=== PATIENT | female | born 1940 | race Caucasian/White ===

== ENCOUNTER 2016-12-08 12:10 | Observation (INO) | payer MEDICARE ==
[2016-12-08 12:23] LABS: Hematocrit 34.1 % (37.0-47.0); Mean Cell Volume 102.1 fl (78-100); Mean Corpuscular Hemoglobin 32.9 pg (27-31); Mean Corpuscular Hgb Conc 32.3 g/dl (32-36); Mean Platelet Volume 10.1 fl (6.0-9.5); Neutrophil # 10.9 K/mm3 (1.3-6.0); Neutrophil % 80.1 % (42-75.0); Platelet Count 184 K/mm3 (150-450); Red Blood Count 3.34 M/mm3 (4.2-5.4); Red Cell Distribution Width 12.3 % (11.5-14.0); White Blood Count 13.7 K/mm3 (4.0-10.5)
[2016-12-08 12:42] LABS: Albumin * 3.5 gm/dl (3.4-5.0); Bilirubin, Total 0.4 mg/dL (0.0-1.1); Ca. Corrected For Albumin 8.8 mg/dL (8.4-10.2); Calcium * 8.7 mg/dL (7.9-10.9); Carbon Dioxide 25.9 mmol/L (24-32.6); Potassium 3.9 mmol/L (3.4-4.6); Total Protein 7.3 gm/dL (6.2-8.2)
[2016-12-08 12:52] LABS: BUN/Creatinine Ratio 26.3 (9.0-21.6)
--- NOTE | 2016-12-08 13:56 | HP ---
Chief Complaint - Chief Complaint Date of Service: 12/08/16 Time of Service: 13:55 Chief Complaint: shortness of breath and difficulty in breathing for the last 1 week. History of Present Illness: Patient is a 76-year-old WF with a history of HTN, HLD, CAD, remote stroke initially came to the office in 12/05/2015 due to cough, wheezing and shortness of breath. She was started on a tapering dose of oral prednisone, nebulizer treatments with DuoNeb and azithromycin. Patient was seen on 12/08/2016 as she was no better. She states she is feeling worse. CXR shows possible infiltrate/ atelectasis in left lower lobe and mild increase in BUN/CR 36/1.37. She will be admitted into observation for IV steroids, IV fluids and nebulizer treatments as she failed to respond to outpatient therapy. 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 and atenolol 25 mg in p.m.]; HTN, HLD, hypothyroidism, LLL pneumonia 06/2008; chronic rhinitis; stress incontinence with vaginal prolapse/urge incontinence; obesity BMI 36.8. Patient History - Cancer: No Hx of Cancer Patient History - Surgical Procedures: Cataracts, Cholecystectomy, Hysterectomy , Total Hip Replacement, T & A, Other Additional Info: PAST SURGICAL HISTORY: Tonsillectomy 1959; KARISHMA/BSO [endometriosis, fibroids] 1975; cholecystectomy 1982 ; laminectomy [ L4-L5 with release of thethered spinal cord at [facility]] 08/2005; RT RONY [ femoral neck fracture] 10/2007; cystoscopy 11/2008; colpocleisis and perineoplasty -11/2008; bilateral cataract surgery 08/2015, 09/2015. LMP (females 10-50): Menopausal - Family History Mother Family History - Medical: - 71- [place], CVA, HTN. Brother Family History - Medical: - 41MI, CAD Father Family History - Medical: - 74bladder cancer with metastases - Social History Living Situations: home Smoking Status: Never smoker Have you smoked in the past 12 months: No Alcohol Use: none Drug Use: none - Immunizations Immunizations Up to Date: Yes - Zostavax 2008; DTaP refused. Hx Pneumococcal Vaccination: Yes - 2007 History of Influenza Vaccine: Yes - 09/2016 Review Of Systems (GEN) - Review of Systems Respiratory: Present: Cough, Shortness of Breath, Wheezing Cardiac: Absent: Chest Pain, Edema, Palpitations Abdominal: Absent: Nausea, Vomiting Musculoskeletal: Present: Back Pain - chronic Immunizations: IMMUNIZATION HX History of Influenza Vaccine Yes Hx Pneumococcal Vaccination Yes Allergies/Adverse Reactions: Allergies Allergy/AdvReac Type Severity Reaction Status Date / Time honey AdvReac Intermediate Other Verified 12/08/16 13:42 adhesive tape AdvReac Mild PLASTIC Verified 12/08/16 13:42 TAPE CAUSES RASH amoxicillin AdvReac Mild RASH Verified 12/08/16 13:42 cephalexin [Cephalexin] AdvReac Mild RASH Verified 12/08/16 13:42 codeine AdvReac Mild RASH Verified 12/08/16 13:42 Home Medications: HOME MEDICATIONS Simvastatin 80 mg PO HS 12/08/13 [Last Taken Unknown] Atenolol [Tenormin] 25 mg PO HS 09/14/15 [Last Taken Unknown] Docusate Sodium [Colace Clear] 50 mg PO BID PRN 09/14/15 [Last Taken Unknown] Isosorbide Mononitrate [Imdur] 15 mg PO DAILY 09/14/15 [Last Taken Unknown] Levothyroxine Sodium [Synthroid] 88 mcg PO DAILY 09/14/15 [Last Taken Unknown] Multivit-Min/FA/Lycopene/Lut [Centrum Silver Tablet] 1 each PO DAILY 09/14/15 [ Last Taken Unknown] Vera-3 Fatty Acids [Vera-3] 1,200 mg PO BID 09/14/15 [Last Taken Unknown] Albuterol Sulfate/Ipratropium [Duoneb 2.5-0.5MG/3ML Soln] 3 ml IH QID PRN [Last Taken Unknown] Aspirin 162.5 mg PO DAILY 12/08/16 [Last Taken Unknown] Cetirizine HCl [Zyrtec] 10 mg PO BID 12/08/16 [Last Taken Unknown] Cholecalciferol (Vitamin D3) [Vitamin D3] 10,000 unit PO DAILY 12/08/16 [Last Taken Unknown] Fluticasone Propionate [Allergy Relief] 1 spray NS DAILY 12/08/16 [Last Taken Unknown] Magnesium Citrate 4 - 8 tab PO DAILY 12/08/16 [Last Taken Unknown] Montelukast Sodium [Singulair] 10 mg PO 1900 12/08/16 [Last Taken Unknown] Prednisone [Deltasone] 20 mg PO DAILY 12/08/16 [Last Taken Unknown] Exam - Exam Vital Signs: Vital Signs - Last Taken Temp 36.5 C 12/08/16 13:38 Pulse 63 12/08/16 13:38 Resp 20 12/08/16 13:38 BP 121/55 12/08/16 13:38 Pulse Ox 94 12/08/16 13:38 Constitutional: Present: Elderly, Obese - looks uncomfortable, constantly coughing. ENT Exam: Present: normal ENT inspection, hearing grossly normal, moist mucous membranes Eye Exam: bilateral eye: PERRL, EOMI Neck: Present: normal inspection, trachea midline Breasts: Present: Exam deferred Respiratory: Present: no respiratory distress, rhonchi, wheezing. Absent: no accessory muscle use Cardiovascular/Chest: Present: regular rate, rhythm. Absent: tachycardia Peripheral Pulses: carotid (R): 2+, carotid (L): 2+ Abdomen: Present: Normal bowel sounds, soft, nontender, nondistended, obese /Rectal: Present: Exam deferred Extremity: Present: non-tender, normal inspection Skin Exam: Present: normal color, warm/dry Eye contact: Present: cooperative, good eye contact, normal speech Diagnostic Studies: Laboratory Tests 12/08/16 12:13 WBC 13.7 H Hct 34.1 L MCV 102.1 H Plt Count 184 12/08/16 12:13 Plasma Sodium 141 Potassium 3.9 Chloride 104 Carbon Dioxide 25.9 BUN 36 H Creatinine 1.37 Est GFR (Non-Af Amer) 40 L D Random Glucose 91 Calcium Adj for Albumin 8.8 Total Bilirubin 0.4 AST 16 ALT 21 Alkaline Phosphatase 62 Total Protein 7.3 Albumin 3.5 CXR PA and lateral: 12/08/2016: Possible left lower infiltrate versus atelectasis. Consider follow-up to document resolution. Stable mild cardiomegaly. DJD of spine. Assessment/Plan - Narrative Narrative: 1. Bronchitis: Solu-Medrol 80 mg IV 1 followed by 60 mg IV every 6 hours. GI prophylaxis with PPI [Protonix 40 mg IV daily]. Start DuoNeb IH 4 times a day[can substitute with Xopenex if patient becomes tachycardic]. Add Pulmicort 0.5 mg IH every 8 hours. No DVT prophylaxis as anticipated stay is one day. 2. Possible left lower lobe infiltrate/atelectasis: Azithromycin 500 mg IV daily and Cornet every 2 hours while awake. 3. Mild dehydration: BUN/CR elevated at 36/1.37. Start IV fluids 0.5 normal saline at 100 mL per hour. 4. Multiple medical problems: Other multiple medical problems including TIA/basal ganglia infarct, HLD, hypothyroidism, CAD, currently stable and will continue medications.
[2016-12-08] MEDS ORDERED: METHYLPREDNISOLONE SOD SUCC 80 MG in WATER FOR INJ.,BACTERIOSTATIC 0 ML IV STA (13:58)
[2016-12-08] MEDS ORDERED: AZITHROMYCIN 500 MG in DEXTROSE 5 % IN WATER 250 ML IV STA ×2 (14:00)
[2016-12-08] MEDS ORDERED: ALBUTEROL SULFATE/IPRATROPIUM 3 ML NEBU IH STA (14:01)
[2016-12-08] MEDS ORDERED: DOCUSATE SODIUM 100 MG CAPSULE PO PRN (14:03)
[2016-12-08] MEDS: PANTOPRAZOLE SODIUM 40 MG in NORMAL SALINE 100 ML IV SCH (14:47)
[2016-12-08] MEDS ORDERED: 0.5 NORMAL SALINE 1,000 ML IV STA (16:21)
[2016-12-08] MEDS: ALBUTEROL SULFATE/IPRATROPIUM 3 ML NEBU IH SCH (18:53)
[2016-12-08] MEDS: BUDESONIDE 0.5 MG/2 ML VIAL.NEB IH SCH (18:55)
[2016-12-08] MEDS: METHYLPREDNISOLONE SOD SUCC 60 MG in WATER FOR INJ.,BACTERIOSTATIC 0 ML IV SCH (18:56)
[2016-12-08] MEDS ORDERED: MONTELUKAST SODIUM 10 MG TABLET PO SCH (19:00)
[2016-12-08] MEDS ORDERED: guaiFENesin/DEXTROMETHORPHAN 118 ML BTL PO PRN (19:32)
[2016-12-08] MEDS: LORATADINE 10 MG TABLET PO SCH (20:09)
[2016-12-08] MEDS ORDERED: ATENOLOL 25 MG TABLET PO SCH (21:00)
[2016-12-08] MEDS ORDERED: SIMVASTATIN 40 MG TABLET PO SCH (21:00)
[2016-12-08] MEDS ORDERED: guaiFENesin/DEXTROMETHORPHAN 118 ML BTL PO SCH (21:00)
[2016-12-09] MEDS: ALBUTEROL SULFATE/IPRATROPIUM 3 ML NEBU IH SCH ×3 (00:27→13:26)
[2016-12-09] MEDS: METHYLPREDNISOLONE SOD SUCC 60 MG in WATER FOR INJ.,BACTERIOSTATIC 0 ML IV SCH ×2 (01:11→07:14)
[2016-12-09] MEDS: BUDESONIDE 0.5 MG/2 ML VIAL.NEB IH SCH (06:06)
[2016-12-09] MEDS ORDERED: LEVOTHYROXINE SODIUM 88 MCG TABLET PO SCH (07:00)
[2016-12-09 07:07] VITALS: BP 145/59
[2016-12-09] MEDS: LORATADINE 10 MG TABLET PO SCH (08:34)
[2016-12-09] MEDS ORDERED: FLUTICASONE PROPIONATE 120 SPRAY INHALER NS SCH (09:00)
[2016-12-09] MEDS ORDERED: ISOSORBIDE MONONITRATE 30 MG TAB.SR.24H PO SCH (09:00)
[2016-12-09 09:08] LABS: Anion Gap 17.5 mmol/L (6.8-13.8); Calcium * 8.8 mg/dL (7.9-10.9); Carbon Dioxide 23.5 mmol/L (24-32.6); Estimated Creat Clear 28.7
[2016-12-09] MEDS ORDERED: AZITHROMYCIN 500 MG in DEXTROSE 5 % IN WATER 250 ML IV ONE ×2 (12:24)
[2016-12-09] MEDS ORDERED: predniSONE 20 MG TABLET PO STA (12:25)
--- NOTE | 2016-12-09 12:26 | DS ---
(1) Bronchitis Diagnosis(s): Patient was treated with steroids IV, azithromycin IV, DuoNeb IH and Pulmicort IH with improvement in symptoms. Problem: Acute (2) atelectasis/ Left lower lung infitrate Diagnosis(s): Use Dominga every 2 hours while awake Problem: Acute (3) Dehydration, mild Diagnosis(s): BUN/CR improved from 36/1.37[12/08/2016] to 28/1.27[12/09/2016 Problem: Acute (4) Chronic medical problems Diagnosis(s): Other medical problems including TIA/basal ganglia infarct, HLD, hypothyroidism , CAD, CKD stage III , anemia of chronic disease, currently stable and will continue medications. Problem: Chronic Description of Stay: DATE OF ADMISSION: 12/08/2016. DATE OF DISCHARGE: 12/09/2016. HOSPITAL COURSE: Patient is a 76-year-old WF with a history of HTN, HLD, CAD treated medically, and a remote history of a lacunar infarct who was treated for bronchitis on with tapering dose of oral prednisone, nebulizer treatments with DuoNeb and azithromycin 500 mg x 3 days. Patient was admitted on 12/08/2016 as she was significantly worse and she failed outpatient therapy. CXR shows possible infiltrate/atelectasis in left lower lobe and mild increase in BUN/CR 36/1.37. She was admitted into observation for IV steroids, IV fluids and nebulizer treatments. She was given Solu-Medrol 80 mg IV followed by 60 mg IV every 6 hours, pantoprazole 40 mg IV for GI prophylaxis, DuoNeb 0.5 mg in 3 mL NS IH every 6 hours and Pulmicort 0.5 mg IH TID. She was advised to use Coronet every 2 hours while awake. She was given azithromycin 500 mg IV 2 days. Mild dehydration was treated with 0.5% normal saline at 100 mL an hour with overall improvement in her condition. B UN/CR improved to 28/1.22. Patient was switched to oral prednisone and is being discharged in a stable condition. More than 30 minutes was spent in examination of the patient, preparation and dictation of the discharge summary. Procedures Performed: none Results and Findings: Laboratory Tests 12/08/16 12:13 WBC 13.7 H Hgb 11.0 L Hct 34.1 L MCV 102.1 H Plt Count 184 12/08/16 12/09/16 12:13 08:40 Plasma Sodium 141 142 Potassium 3.9 4.0 Chloride 104 103 Carbon Dioxide 25.9 23.5 L BUN 36 H 28 H Creatinine 1.37 1.22 Est GFR (Non-Af Amer) 40 L D 45 L Random Glucose 91 200 H D Calcium Adj for Albumin 8.8 Total Bilirubin 0.4 AST 16 ALT 21 Alkaline Phosphatase 62 Total Protein 7.3 Albumin 3.5 CXR PA and lateral: 12/08/2016: Possible left lower infiltrate versus atelectasis. Consider follow-up to document resolution. Stable mild cardiomegaly. DJD of spine. 12/08/16 13:38 Weight 88.3 kg Discharge Disposition: Home self care Disposition: Home self-care Condition: Fair Discharge Diet: Low fat/chol, High Fiber Referrals: Amaris Royal MD [Primary Care Provider] - Problem Oriented Discharge Instructions to Patient/Family: Acute Bronchitis Additional Patient Instructions (free text): Start prednisone 60 mg from 12/10/2016. Use cornet every 2 hours while awake. Continue neb treatments 3 times a day for the next 5 days. Only new medication is prednisone. Decrease cetirizine to 10 mg at bedtime[currently taking cetirizine 10 mg twice a day]. Please give patient information on bronchitis. Appointment with Dr. Aranda in 7-10 days. Prescriptions (Any new or edited meds): predniSONE [Prednisone] 20 mg PO DAILY #9 tablet Complete Home Medications List: Complete Home Medication List: Simvastatin 80 mg PO HS 12/08/13 Atenolol [Tenormin] 25 mg PO HS 09/14/15 Docusate Sodium [Colace Clear] 50 mg PO BID PRN 09/14/15 Isosorbide Mononitrate [Imdur] 15 mg PO DAILY 09/14/15 Levothyroxine Sodium [Synthroid] 88 mcg PO DAILY 09/14/15 Multivit-Min/FA/Lycopene/Lut [Centrum Silver Tablet] 1 each PO DAILY 09/14/15 Albany-3 Fatty Acids [Albany-3] 1,200 mg PO BID 09/14/15 Albuterol Sulfate/Ipratropium [Duoneb 2.5-0.5MG/3ML Soln] 3 ml IH QID PRN Aspirin 162.5 mg PO DAILY 12/08/16 Cetirizine HCl [Zyrtec] 10 mg PO BID 12/08/16 Cholecalciferol (Vitamin D3) [Vitamin D3] 10,000 unit PO DAILY 12/08/16 Fluticasone Propionate [Allergy Relief] 1 spray NS DAILY 12/08/16 Magnesium Citrate 4 - 8 tab PO DAILY 12/08/16 Montelukast Sodium [Singulair] 10 mg PO 1900 12/08/16 predniSONE [Prednisone] 20 mg PO DAILY #9 tablet 12/09/16
[2016-12-09] MEDS: PANTOPRAZOLE SODIUM 40 MG in NORMAL SALINE 100 ML IV SCH (14:22)
== END 2016-12-09 15:30 | disposition home or self-care (01) ==
LOC: LAB 12:10 → MS 13:29
PROVIDERS: ADMIT Internal Medicine; ATTEND Internal Medicine
DX: J20.9 Acute bronchitis, unspecified (principal); J98.11 Atelectasis; E86.0 Dehydration; Z90.49 Acquired absence of other specified parts of digestive tract; Z90.710 Acquired absence of both cervix and uterus; Z96.649 Presence of unspecified artificial hip joint; Z86.73 Personal history of transient ischemic attack (TIA), and cerebral infarction without residual deficits; I25.119 Atherosclerotic heart disease of native coronary artery with unspecified angina pectoris; I10 Essential (primary) hypertension; E78.5 Hyperlipidemia, unspecified; E03.9 Hypothyroidism, unspecified; E66.9 Obesity, unspecified; Z68.36 Body mass index [BMI] 36.0-36.9, adult; Z82.3 Family history of stroke; Z82.49 Family history of ischemic heart disease and other diseases of the circulatory system; Z80.52 Family history of malignant neoplasm of bladder; Z79.82 Long term (current) use of aspirin; Z79.899 Other long term (current) drug therapy
CPT/HCPCS: 36415; 71020; 80048; 80053; 85025; 94640; 96361; 96365; G0378; G0379

== ENCOUNTER 2017-02-28 14:34 | Emergency (ER) | payer MEDICARE ==
[2017-02-28] MEDS ORDERED: MECLIZINE HCL 25 MG TABLET PO ONE (14:54)
--- OUTSIDE RECORDS SUMMARY | 2017-02-28 15:02 | XMS REPORT | Summary of Care ---
:1940 Author Organization [facility] Address [address] [place] [address] [address] [place] [address] Care Team Providers Name Role Phone Amaris Royal Primary Care Physician Encounter Date(s): 12/17/16 - 12/17/16 [facility] [address] [id number] Discharge Disposition: 01 Discharged to Home or Self Care Attending Physician: Ludmila Moise MD Referring Physician: Ludmila Moise MD Vital Signs Most recent to oldest [Reference Range]: 1 Peripheral Pulse Rate [60-100 bpm] 48 bpm *LOW* (12/17/16 1:05 PM) SpO2 97 % (12/17/16 1:05 PM) Blood Pressure [90-130/60-90 mmHg] 117/62mmHg (12/17/16 1:05 PM) Mean Arterial Pressure, Cuff 80 mmHg (12/17/16 1:05 PM) Height/Length Measured 154 cm (12/17/16 1:05 PM) Weight Dosing 88.50 kg1 (12/17/16 1:19 PM) Weight Measured 88.5 kg (12/17/16 1:05 PM) BSA Measured 1.86 m2 (12/17/16 1:05 PM) Body Mass Index Measured 37.32 kg/m2 (12/17/16 1:05 PM) 1Result Comment: This result was because the dosing weight was either not entered or it is>30 days old. This result is based off: Weight Measured December 17, 2016 13:05:00 HVAC INSTRUCTOR by Micaela Bolaños RN Problem List Condition Effective Dates Status Health Status Informant Coronary artery disease(Confirmed) Active CVA (cerebral vascular 06/2000 Active accident)(Confirmed) Diastolic dysfunction(Confirmed) Active Hyperlipidemia(Confirmed) Active Hypertension(Confirmed) 1999 Active Hypothyroidism(Confirmed) 1992 Active Pneumonia(Confirmed) 06/2008 Active Rhinitis, chronic(Confirmed) 01/27/14 Active Stress incontinence in Active female(Confirmed) Allergies, Adverse Reactions, Alerts Substance Reaction Severity Status amoxicillin Rash Active cephalexin Rash Active Codeine Phosphate Rash Active Codeine Sulfate Rash Active Tape Rash Active Medications aspirin 325 mg oral tablet 0.5 tab, Oral, Daily, # 30 tab(s), 0 Refill(s), Start Date: 09/24/16 11:09:00 CDT Start Date: 09/24/16 Status: Orderedatenolol 25 mg oral tablet 1 tab(s), Oral, Daily, # 30 tab(s), 0 Refill(s), Start Date: 09/24/16 11:09:00 CDT Start Date: 09/24/16 Status: OrderedCardizem CD 180 mg/24 hours oral capsule, extended release 1 cap(s), Oral, Daily, # 30 cap(s), 0 Refill(s), Start Date: 10/13/16 15:30:00 HVAC INSTRUCTOR Start Date: 10/13/16 Stop Date: 10/13/16 Status: CompletedCardizem CD 180 mg/24 hours oral capsule, extended release 1 cap(s), Oral, Daily, # 30 cap(s), 3 Refill(s), Start Date: 10/13/16 15:51:03 HVAC INSTRUCTOR, Pharmacy: [place], [place] Start Date: 10/13/16 Status: OrderedCentrum Silver Ultra Women's oral tablet 1 tab(s), Oral, Daily, 0 Refill(s), Start Date: 09/24/16 11:10:00 CDT Start Date: 09/24/16 Status: Orderedcetirizine 10 mg oral tablet tab(s), Oral, BID, 0 Refill(s), Start Date: 09/24/16 11:10:00 CDT Start Date: 09/24/16 Status: OrderedColace 50 mg oral capsule 1 cap(s), Oral, BID, PRN for constipation, # 180 cap(s), 0 Refill(s), Start Date : 09/24/16 11:10:00 CDT Start Date: 09/24/16 Status: Orderedfluticasone 50 mcg/inh nasal spray 1 spray(s), Nasal, Daily, # 16 gm, 0 Refill(s), Start Date: 09/24/16 11:10:00 CDT Start Date: 09/24/16 Status: OrderedImdur 30 mg oral tablet, extended release 0.5 tab(s), Oral, qAM, 0 Refill(s), Start Date: 09/24/16 11:11:00 CDT Start Date: 09/24/16 Status: Orderedlevothyroxine 88 mcg (0.088 mg) oral tablet 1 tab(s), Oral, Daily, # 30 tab(s), 0 Refill(s), Start Date: 09/24/16 11:11:00 CDT Start Date: 09/24/16 Status: Orderedlisinopril 20 mg oral tablet 1 tab(s), Oral, Daily, # 30 tab(s), 3 Refill(s), Start Date: 11/17/16 15:05:00 HVAC INSTRUCTOR, Pharmacy: [place], [place] Start Date: 11/17/16 Status: Orderedmagnesium oxide Oral, 0 Refill(s), Start Date: 10/27/16 10:57:00 HVAC INSTRUCTOR Start Date: 10/27/16 Status: Orderedmontelukast 10 mg oral tablet 1 tab(s), Oral, qPM, # 30 tab(s), 0 Refill(s), Start Date: 09/24/16 11:11:00 CDT Start Date: 09/24/16 Status: OrderedOmega-3 oral capsule 1 tab, Oral, BID, 0 Refill(s), Start Date: 09/24/16 11:12:00 CDT Start Date: 09/24/16 Status: Orderedsimvastatin 80 mg oral tablet 1 tab(s), Oral, HS, # 30 tab(s), 0 Refill(s), Start Date: 09/24/16 11:13:00 CDT Start Date: 09/24/16 Status: OrderedVitamin D3 10,000 intl units oral capsule 1 cap(s), Oral, qWeek, 0 Refill(s), Start Date: 10/27/16 10:56:00 HVAC INSTRUCTOR Start Date: 10/27/16 Status: OrderedVitamin D3 2000 intl units oral capsule 1 cap(s), Oral, Daily, 0 Refill(s), Start Date: 09/24/16 11:13:00 CDT Start Date: 09/24/16 Stop Date: 10/27/16 Status: DiscontinuedVitamin K1 100 mcg oral tablet 1 tab(s), Oral, Daily, 0 Refill(s), Start Date: 10/27/16 10:57:00 HVAC INSTRUCTOR Start Date: 10/27/16 Status: Ordered Results No data available for this section Immunizations No data available for this section Procedures Procedure Date Related Diagnosis Body Site Echocardiogram-severe MR, normal EF 10/2016 Cardiac catheterization, left heart1 10/13/16 Cataract surgery2 08/2015 Colpocleisis 12/22/08 Perineoplasty 12/22/08 Cystoscopy 11/2008 Arthroplasty3 10/2007 Laminectomy4 08/2005 Cardiac catheterization, left heart5 2000 Cardiac catheterization, left heart6 1992 Cholecystectomy 1982 Vaginal hysterectomy 1976 KARISHMA BSO - Total abdominal hysterectomy and 1975 bilateral salpingo-oophorectomy7 Tonsillectomy 1960 1No [id number] - Left har4Gxwfz, Femoral neck [id number] with release of thethered spinal vpxe5Napntr Diagonal Branch to the LAD - 85-90% stensosis - medically [id number] to endometriosis, fibroids and bleeding Social History No data available for this section Assessment and Plan No data available for this section
--- OUTSIDE RECORDS SUMMARY | 2017-02-28 15:02 | XMS REPORT | Continuity of Care Document ---
:1940 Author Organization [facility] ([facility]) Address [address] [place] [address] Phone [phone] Care Team Providers Name Role Phone Ashwini Austin-Comm Primary Care Provider [phone] Source Comments This disclosure is being made pursuant to the Care Everywhere program, applicable federal and state laws, and may not contain all informaitonavailable regarding this patient.[facility] ([facility]) Active Allergies and Adverse Reactions Allergen Noted Date Severity Reactions Comments Cephalexin Urticaria (Hives) Codeine Urticaria (Hives) Honey Blisters,Urticaria (Hives) Mouth sores Non-Med Plastic Tape Urticaria (Hives) Current Medications Prescription Sig. Disp. Refills Start Date End Date Status levothyroxine (LEVOTHROID) take 1 Tab by Active 88 mcg tablet mouth daily. isosorbide mononitrate take 0.5 Tabs by Active (IMDUR) 30 mg CR tablet mouth Every morning. clopidogrel (PLAVIX) 75 mg take 1 Tab by Active tablet mouth daily. Aitapkukdywie-Hehostwv-Txup take 1 Tab by Active in (CENTRUM SILVER) Tab mouth daily. Ascorbate take 1 Tab by Active Calcium-Bioflavonoid mouth daily. (SHERI-C) 1,000-200 mg TbSR Calcium Carbonate-Vit take 1 Tab by Active D3-Min (CALTRATE 600+D PLUS mouth 2 times MINERALS) 600 mg (1,500 daily. mg)-400 unit Chew furosemide (LASIX) 40 mg take 1 Tab by Active tablet mouth daily. cholecalciferol (VITAMIN D) take 1 Tab by Active 1,000 unit Tab tablet mouth daily. Docusate Sodium (STOOL take 2 Tabs by Active SOFTENER) 100 mg Tab mouth every evening. atenolol (TENORMIN) 25 mg take 1 Tab by Active tablet mouth daily. simvastatin (ZOCOR) 80 mg take 1 Tab by Active tablet mouth every evening. 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/2007 Incomplete bladder emptying 04/16/2007 Social History Tobacco Use Types Packs/Day Years Used Date Never Assessed Last Filed Vital Signs Vital Sign Reading Time Taken Blood Pressure 148/74 08/09/2009 11:15 AM CDT Pulse 67 08/09/2009 11:15 AM CDT Temperature 36.8 C (98.24 F) 12/23/2008 4:00 AM INSPECTOR STRUCTURAL BONDING Respiratory Rate 16 12/23/2008 4:00 AM INSPECTOR STRUCTURAL BONDING Height 1.55 m (5' 1.02") 12/22/2008 12:40 PM INSPECTOR STRUCTURAL BONDING Weight 88.597 kg (195 lb 5.1 oz) 12/22/2008 12:40 PM INSPECTOR STRU[employer] BONDING Body Mass Index 36.88 12/22/2008 12:40 PM INSPECTOR STRUCTURAL BONDING Oxygen Saturation 97% 12/22/2008 5:35 AM INSPECTOR STRUCTURAL BONDING Plan of Care Health Maintenance Due Date Last Done Comments Hepatitis B Vaccine (1 of 3 - Primary Series) 1940 Tdap Vaccine 1949 Lipid Disorder Screening 1956 Td Vaccine 1956 Mammogram 1978 Colonoscopy 11/20/1988 Zoster Vaccine 1998 Osteoporosis Screening (DXA Bone Density) 2003 Pneumococcal Vaccine (1 of 2 - PCV13) 2003 Influenza Vaccine: Seasonal (#1) 06/30/2016 Results from Last 3 Months Not on file
--- OUTSIDE RECORDS SUMMARY | 2017-02-28 15:02 | XMS REPORT | Summary of Care ---
:1940 Author Organization [facility] Address [address] [place] [address] Care Team Providers Name Role Phone CatiastefaniaAmaris Primary Care Physician Encounter Date(s): 01/12/17 - 01/12/17 [facility] Julisa Barnard, [address] [place], [place] [address] Discharge Diagnosis: Thoracic spine pain Discharge Diagnosis: Thoracic kyphosis Discharge Disposition: 01 Discharged to Home or Self Care Attending Physician: Jose Tapia NP Referring Physician: Jose Tapia NP Vital Signs Most recent to oldest [Reference Range]: 1 Peripheral Pulse Rate [60-100 bpm] 48 bpm *LOW* (01/12/17 9:51 AM) Blood Pressure [90-130/60-90 mmHg] 143/70mmHg *HI* (01/12/17 9:51 AM) Mean Arterial Pressure, Cuff 94 mmHg (01/12/17 9:51 AM) Most recent to oldest [Reference Range]: 1 Height/Length Measured 154 cm (01/12/17 9:51 AM) Weight Dosing 88.50 kg1 (01/12/17 9:59 AM) Weight Measured 88.5 kg (01/12/17 9:51 AM) BSA Measured 1.86 m2 (01/12/17 9:51 AM) Body Mass Index Measured 37.32 kg/m2 (01/12/17 9:51 AM) 1Result Comment: This result was because the dosing weight was either not entered or it is>30 days old. This result is based off: Weight Measured January 12, 2017 09:51:00 ART DISPLAY MAKER by Rafiq Gomez Pulp Refiner Operator Problem List Condition Effective Dates Status Health Status Informant Coronary artery disease(Confirmed) Active CVA (cerebral vascular 06/2000 Active accident)(Confirmed) Diastolic dysfunction(Confirmed) Active Hyperlipidemia(Confirmed) Active Hypertension(Confirmed) 1999 Active Hypothyroidism(Confirmed) 1992 Active Thoracic kyphosis(Confirmed) Active Thoracic spine pain(Confirmed) Active Pneumonia(Confirmed) 06/2008 Active Rhinitis, chronic(Confirmed) 01/27/14 [...] cap(s), 0 Refill(s), Start Date: 10/13/16 15:30:00 ART DISPLAY MAKER Start Date: 10/13/16 Stop Date: 10/13/16 Status: CompletedCardizem CD 180 mg/24 hours oral capsule, extended release 1 cap(s), Oral, Daily, # 30 cap(s), 3 Refill(s), Start Date: 10/13/16 15:51:03 ART DISPLAY MAKER, Pharmacy: [place], [place] Start Date: 10/13/16 Status: OrderedCentrum Silver [...] tab(s), 3 Refill(s), Start Date: 11/17/16 15:05:00 ART DISPLAY MAKER, Pharmacy: [place], [place] Start Date: 11/17/16 Status: Orderedmagnesium oxide Oral, 0 Refill(s), Start Date: 10/27/16 10:57:00 ART DISPLAY MAKER Start Date: 10/27/16 Status: Orderedmontelukast 10 mg [...] qWeek, 0 Refill(s), Start Date: 10/27/16 10:56:00 ART DISPLAY MAKER Start Date: 10/27/16 Status: OrderedVitamin D3 2000 intl units oral capsule 1 cap(s), Oral, Daily, 0 Refill(s), Start Date: 09/24/16 11:13:00 CDT Start Date: 09/24/16 Stop Date: 10/27/16 Status: DiscontinuedVitamin K1 100 mcg oral tablet 1 tab(s), Oral, Daily, 0 Refill(s), Start Date: 10/27/16 10:57:00 ART DISPLAY MAKER Start Date: 10/27/16 Status: Ordered Results No [...] and 1975 bilateral salpingo-oophorectomy7 Tonsillectomy 1960 1No [id number] - Left hok4Tutji, Femoral neck [id number] with release of thethered spinal htjb5Mmjwqi Diagonal Branch to the LAD - 85-90% stensosis - medically [id number] to endometriosis, fibroids and bleeding Social History No data available for this section Assessment and Plan No data available for this section
--- NOTE | 2017-02-28 15:05 | ERNOTE ---
Dizziness ER Record Date of Service: 02/28/17 Presenting Symptoms: dizziness Time Seen by Provider: 02/28/17 14:39 Source: patient, family Exam Limitations: no limitations Immunizations: IMMUNIZATION HX Immunizations Up to Date Yes History of Influenza Vaccine Yes Hx Pneumococcal Vaccination Yes Allergies/Adverse Reactions: Allergies Allergy/AdvReac Type Severity Reaction Status Date / Time honey AdvReac Intermediate Other Verified 12/08/16 13:42 adhesive tape AdvReac Mild PLASTIC Verified 12/08/16 13:42 TAPE CAUSES RASH amoxicillin AdvReac Mild RASH Verified 12/08/16 13:42 cephalexin [Cephalexin] AdvReac Mild RASH Verified 12/08/16 13:42 codeine AdvReac Mild RASH Verified 12/08/16 13:42 Home Medications: HOME MEDICATIONS Simvastatin 80 mg PO HS 12/08/13 [Last Taken Unknown] Atenolol [Tenormin] 25 mg PO HS 09/14/15 [Last Taken Unknown] Docusate Sodium [Colace Clear] 50 mg PO BID PRN 09/14/15 [Last Taken Unknown] Isosorbide Mononitrate [Imdur] 15 mg PO DAILY 09/14/15 [Last Taken Unknown] Levothyroxine Sodium [Synthroid] 88 mcg PO DAILY 09/14/15 [Last Taken Unknown] Multivit-Min/FA/Lycopen/Lutein [Centrum Silver Tablet] 1 each PO DAILY 09/14/15 [Last Taken Unknown] Four States-3 Fatty Acids [Four States-3] 1,200 mg PO BID 09/14/15 [Last Taken Unknown] Albuterol Sulfate/Ipratropium [Duoneb 2.5-0.5MG/3ML Soln] 3 ml IH QID PRN [Last Taken Unknown] Aspirin 162.5 mg PO DAILY 12/08/16 [Last Taken Unknown] Cetirizine HCl [Zyrtec] 10 mg PO BID 12/08/16 [Last Taken Unknown] Cholecalciferol (Vitamin D3) [Vitamin D3] 10,000 unit PO DAILY 12/08/16 [Last Taken Unknown] Fluticasone Propionate [Allergy Relief] 1 spray NS DAILY 12/08/16 [Last Taken Unknown] Magnesium Citrate 4 - 8 tab PO DAILY 12/08/16 [Last Taken Unknown] Montelukast Sodium [Singulair] 10 mg PO 1900 12/08/16 [Last Taken Unknown] predniSONE [Prednisone] 20 mg PO DAILY #9 tablet 12/09/16 [Last Taken Unknown] Meclizine HCl [Antivert] 25 mg PO Q4H #100 tablet 02/28/17 [Last Taken Unknown] - History of Present Illness Narrative: This morning developed spinning vertigo, associated with nausea and blurred vision. She also has chronic tinnitus, that sounds like small engines in her ears. She has had vertigo in the past, more severe than this, but came to the [facility] ER by private vehicle today because she didn't want to have a heart attack or stroke. Timing and Duration: sudden onset, intermittent Noted on awakening:: No Severity: max: mild Severity: currently: mild Associated Symptoms: Present: ringing/roaring in ear, nausea, sweating Sense of movement: Present: spinning Fainted/near fainted while:: Absent: standing, sitting, supine Decreased ability to stand/walk:: Present: off balance Usually:: Present: walks w/o assistance Modifying Factors - (Improves): Reports: nothing - rest Modifying Factors - (Worsens): Reports: changing position Prior Treament: Reports: similar symptoms before. Denies: currently on antibiotics Review of Systems - Review of Systems Constitutional: Present: no symptoms reported EYE: Present: no symptoms reported ENT: Present: See HPI Respiratory: Present: no symptoms reported Cardiology: Present: no symptoms reported Gastrointestinal/Abdominal: Present: nausea Genitourinary: Present: no symptoms reported Musculoskeletal: Present: no symptoms reported Skin: Present: no symptoms reported Neurological: Present: no symptoms reported Endocrine: Present: no symptoms reported Hematologic/Lymphatic: Present: no symptoms reported Psych: Present: no symptoms reported All Other Systems: All systems neg except as marked - Patient's Past Medical History Patient History - Medical: No pertinent hx Patient History - Cardiac/Respiratory: No pertinent hx Patient History - Cancer: No Hx of Cancer Patient History - Surgical Procedures: Appendectomy, Cholecystectomy, Hysterectomy, Total Hip Replacement Patient History - Other: None LMP (females 10-50): Menopausal - Family History Mother Family History - Medical: Family History - Cardiac/Respiratory: CVA/Stroke, Hypertension, Myocardial Infarction Father Family History - Medical: Brother Family History - Medical: Family History - Cardiac/Respiratory: Myocardial Infarction - Social History Living Situations: home Abuse History: No History of abuse Psych History: No pertinent hx Smoking Status: Never smoker Have you smoked in the past 12 months: No Alcohol Use: none Drug Use: none - Immunizations Immunizations Up to Date: Yes Hx Pneumococcal Vaccination: Yes History of Influenza Vaccine: Yes Physical Exam - Physical Exam General Appearance: Present: wd/wn, alert, no apparent distress Eye Exam: Normal inspection: bilateral, PERRL: bilateral, EOMI: bilateral Ears, Nose, Throat: Present: normal ENT inspection, normal pharynx Neck: Present: normal inspection, nontender. Absent: carotid bruit Respiratory: Present: no respiratory distress, normal breath sounds Cardiovascular/Chest: Present: regular rate, rhythm, no murmur Gastrointestinal/Abdominal: Present: normal bowel sounds, nontender, nondistended, soft, no organomegaly Back Exam: Present: normal inspection Extremity Exam: Present: pedal edema - 2+ bilaterally, chronic, worse by the end of the day. Neurological Exam: Present: alert, oriented, normal mood/affect, no motor/ sensory deficits Skin Exam: Present: normal color, warm/dry ED Progress - Results and Orders Patient's Lab Results:: I have reviewed the patient's lab results. - Vital Signs Patient's Vital Signs:: I have reviewed the patient's vital signs. Vital Signs: Vital Signs 02/28/17 14:40 Temperature 36.6 C Pulse Rate 40 L Respiratory 13 Rate Blood Pressure 108/40 O2 Sat by Pulse 96 Oximetry - EKG EKG read: Interp. by me - sinus bradycardai, poor r waves in anterior leads, non acute. - X-Ray X-Ray #1 X-Ray: chest Interpretation: Interp. by me - large heart, non acute. - Progress/Reassessment Chief Complaint: Dizziness Progress:: Improved Departure Clinical Impression: Vertigo Tinnitus Qualifiers: Laterality: bilateral Qualified Code(s): H93.13 - Tinnitus, bilateral - Departure Disposition: Home self-care Condition: Good Instructions: Tinnitus, Vertigo, [id number] Additional Instructions: Followup with your doctor next week. Referrals: Amaris Royal MD [Primary Care Provider] - Prescriptions: Meclizine HCl [Antivert] 25 mg PO Q4H #100 tablet
[2017-02-28] MEDS ORDERED: MECLIZINE HCL 25 MG TABLET ONE (15:09)
[2017-02-28 15:22] LABS: Hematocrit 31.5 % (37.0-47.0); Hemoglobin 10.5 gm/dL (12.5-16.0); Mean Cell Volume 99.7 fl (78-100); Mean Corpuscular Hemoglobin 33.2 pg (27-31); Mean Corpuscular Hgb Conc 33.3 g/dl (32-36); Mean Platelet Volume 10.7 fl (6.0-9.5); Neutrophil # 2.8 K/mm3 (1.3-6.0); Neutrophil % 58.7 % (42-75.0); Platelet Count 139 K/mm3 (150-450); Red Blood Count 3.16 M/mm3 (4.2-5.4); Red Cell Distribution Width 12.3 % (11.5-14.0); White Blood Count 4.8 K/mm3 (4.0-10.5)
[2017-02-28 15:38] LABS: Troponin I 0.022 ng/ml (0.00-0.10)
[2017-02-28 15:39] LABS: Albumin * 3.5 gm/dl (3.4-5.0); Anion Gap 10.9 mmol/L (6.8-13.8); Bilirubin, Total 0.6 mg/dL (0.0-1.1); Ca. Corrected For Albumin 8.7 mg/dL (8.4-10.2); Calcium * 8.6 mg/dL (7.9-10.9); Carbon Dioxide 30.8 mmol/L (24-32.6); Potassium 4.7 mmol/L (3.4-4.6); Total Protein 6.6 gm/dL (6.2-8.2)
[2017-02-28 15:41] VITALS: BP 105/37
== END 2017-02-28 16:05 | disposition home or self-care (01) ==
LOC: ER 14:34
DX: R42 Dizziness and giddiness (principal); H93.13 Tinnitus, bilateral

== ENCOUNTER 2017-04-13 13:24 | Day surgery (SDC) | payer MEDICARE ==
--- OUTSIDE RECORDS SUMMARY | 2017-04-13 13:28 | XMS REPORT | Continuity of Care Document ---
:1940 Author Organization [facility] ([facility]) Address [address] [place] [address] Phone [phone] Care Team Providers Name Role Phone Ashwini Calmar-Comm Primary Care Provider [phone] Source Comments This disclosure is being made pursuant to the Care Everywhere program, applicable federal and state laws, and may not contain all informaitonavailable regarding this patient.[facility] ([facility]) Active Allergies and Adverse Reactions Allergen [...] 1 Tab by Active tablet mouth daily. [id number] take 1 Tab by Active in (CENTRUM [...] 36.8 C (98.24 F) 12/23/2008 4:00 AM INVOICE CLERK Respiratory Rate 16 12/23/2008 4:00 AM INVOICE CLERK Height 1.55 m (5' 1.02") 12/22/2008 12:40 PM INVOICE CLERK Weight 88.597 kg (195 lb 5.1 oz) 12/22/2008 12:40 PM INVOICE CLERK Body Mass Index 36.88 12/22/2008 12:40 PM INVOICE CLERK Oxygen Saturation 97% 12/22/2008 5:35 AM INVOICE CLERK Plan of Care Health Maintenance Due Date [...]
[2017-04-13 13:58] VITALS: BP 139/71
== END 2017-04-13 13:25 | disposition home or self-care (01) ==
LOC: AMB 13:24
PROVIDERS: ATTEND Ophthalmology
PROC: 085K3ZZ Destruction of Left Lens, Percutaneous Approach (ICD-10-PCS; principal; 2017-04-13 15:10)
DX: H26.492 Other secondary cataract, left eye (principal); E78.00 Pure hypercholesterolemia, unspecified; E03.9 Hypothyroidism, unspecified; Z68.37 Body mass index [BMI] 37.0-37.9, adult